=== PATIENT | female | born 1975 | race Caucasian/White ===

== ENCOUNTER → 2021-11-26 15:11 | Outpatient (CLI) | payer OTHER, SELFPAY | PROVIDERS: Visit Provider Nurse Practitioner Family | DX: U07.1 COVID-19 (principal) | CPT/HCPCS: C9803; U0003; U0005 ==

== ENCOUNTER → 2022-08-05 13:41 | Outpatient (CLI) | payer BC, SELFPAY ==
--- NOTE | 2022-08-05 14:01 | XR_ITS ---
FINAL REPORT CLINICAL HISTORY: . thoracic pain, acute midline low back pain with right sciatica , cervicalgia numbness of upper extremity FINDINGS: CERVICAL SPINE 5 views were obtained. There is no acute fracture. There is no malalignment. There are imel-[id number] degenerative changes with osteophytes. There is no significant neural foraminal narrowing. There are chronic calcifications posterior to C4 and C5. There is no soft tissue abnormality. IMPRESSION: Degenerative changes with no acute bony abnormality. THORACIC SPINE 2 views were obtained. There is no acute fracture. There is no malalignment. There are qdok-[id number] degenerative changes with osteophytes. There is no soft tissue abnormality. IMPRESSION: Degenerative change with no acute bony abnormality. LUMBAR SPINE 3 views were obtained. There is no acute fracture. There is no malalignment. There are mild degenerative changes with osteophytes. There is no soft tissue abnormality. IMPRESSION: Degenerative change with no acute bony abnormality. Reviewed, Interpreted and Dictated by Baron Odonnell III, MD Transcribed by Zuleyka Rosado Authenticated and . [facility]
[2022-08-05 15:55] LABS: Uric Acid 5.6 mg/dl (2.5-6.2)
[2022-08-05 16:00] LABS: C-Reactive Protein 18.8 mg/L (0-4)
[2022-08-05 16:20] LABS: Erythrocyte Sedimentation Rate 33 mm/hr (0-20)
[2022-08-07 10:12] LABS: RA Latex Turbid. <10.0 IU/mL (<14.0)
[2022-08-21 17:08] LABS: Antinuclear Antibodies (ANA) Negative
== END ==
PROVIDERS: PCP Nurse Practitioner Family; Visit Provider Nurse Practitioner Family
DX: M54.2 Cervicalgia (principal); R20.0 Anesthesia of skin; M54.6 Pain in thoracic spine; M54.41 Lumbago with sciatica, right side
CPT/HCPCS: 36415; 72084; 84550; 85651; 86038; 86140; 86431

== ENCOUNTER → 2023-03-09 12:58 | Outpatient (CLI) | payer BC, SELFPAY ==
--- NOTE | 2023-03-09 12:59 | MM_ITS ---
PROCEDURE INFORMATION: Exam: MG Bilateral Screening 3D Mammography Exam date and time: 03/09/2023 12:49 PM Age: 48 years old Clinical indication: Screening mammogram TECHNIQUE: Imaging protocol: Bilateral Screening tomosynthesis and 2D mammography including computer-aided detection (CAD) when performed. COMPARISON: No relevant prior studies available. FINDINGS: MAMMOGRAPHY: Breast composition: There are scattered areas of fibroglandular density. Mass: None. Architectural distortion: No new or suspicious architectural distortion. Calcifications: No new or suspicious calcifications are present Asymmetric density: No new or suspicious asymmetric density is present Skin thickening: None. Axillary adenopathy: None. IMPRESSION: No mammographic evidence of malignancy. Recommend annual screening mammography unless otherwise clinically indicated. ASSESSMENT: BI-RADS category 1: Negative
--- NOTE | 2023-03-09 12:59 | US_ITS ---
FINAL REPORT CLINICAL HISTORY: Heavy Bleeding FINDINGS: Transvaginal sonographic images of the pelvis were obtained. The uterus is enlarged measuring 10.3 x 6.2 x 5.5 cm. The endometrium is markedly thickened, measuring up to 2.4 cm. There are multiple uterine fibroids measuring up to 2.2 cm. The right ovary measures 2.6 cm in length and left ovary measures 4.6 cm in length. Normal blood flow seen to the ovaries. There is a 2.7 cm left ovarian cyst. There is a small amount of free fluid. IMPRESSION: Markedly thickened endometrium up to 2.4 cm. Enlarged uterus with multiple uterine fibroids up to 2.2 cm. 2.7 cm left ovarian cyst. Reviewed, Interpreted and Dictated by Baron Odonnell III, MD Transcribed by Lorri Lee Authenticated and [facility]
== END ==
PROVIDERS: PCP Nurse Practitioner Family; Visit Provider Obstetrics & Gynecology
DX: Z12.31 Encounter for screening mammogram for malignant neoplasm of breast (principal); N93.9 Abnormal uterine and vaginal bleeding, unspecified; Z98.890 Other specified postprocedural states
CPT/HCPCS: 76830; 77063; 77067

== ENCOUNTER → 2023-09-16 09:50 | Outpatient (CLI) | payer BC, SELFPAY ==
[2023-09-16 10:07] LABS: Basophils # 0.1 K/mm3 (0-0.2); Basophils % 0.5 % (0.1-2.0); Eosinophils # 0.2 K/mm3 (0.0-0.4); Eosinophils % 1.4 % (0.1-12.0); Hematocrit 41.1 % (37.0-47.0); Hemoglobin 13.6 g/dL (12.2-16.2); Lymphocytes # 3.2 K/mm3 (0.7-4.5); Lymphocytes % 30.1 % (10-50); Mean Corpuscular HGB Conc 33.1 g/dL (31.8-35.4); Mean Corpuscular Hemoglobin 30.2 pg (27.0-31.2); Mean Corpuscular Volume 91.2 fl (81-99); Mean Platelet Volume 7.7 fl (7.4-10.4); Monocytes # 0.4 K/mm3 (0.1-1.0); Monocytes % 4.1 % (1.7-9.3); Neutrophils # 6.8 K/mm3 (1.8-7.8); Platelet Count 420 K/mm3 (142-424); Red Cell Distribution Width 14.5 % (11.5-17.5); White Blood Count 10.6 K/mm3 (4.8-10.8)
[2023-09-16 11:42] LABS: Chloride 101 mmol/L (98-107); Potassium 4.2 mmoL/L (3.5-5.1); Sodium 142 mmol/L (136-145)
[2023-09-16 11:44] LABS: Blood Urea Nitrogen 9 mg/dl (7-17); Estimated Glomerular Filt Rate 90 ml/min (>60); GFR (African American) 109 ML/MIN (>60)
[2023-09-16 11:45] LABS: Alanine Aminotransferase 35 U/L (12-78); Albumin/Globulin Ratio 1.5 (1.1-1.8); Alkaline Phosphatase 57 U/L (38-126); Anion Gap 15.2 mEq/L (5-15); Aspartate Amino Transferase 34 U/L (14-36); Bilirubin,Total 0.4 mg/dl (0.2-1.3); Calcium 9.8 mg/dl (8.4-10.2); Carbon Dioxide 30 mmol/L (22.0-30.0); Globulin 3.4 g/dL (1.3-3.2); Glucose 95 mg/dl (74-100); Total Protein,Serum 8.4 g/dl (6.3-8.2)
[2023-09-16 12:04] LABS: HCG,Quantitative < 2 mIU/ml (0-5.42); Hemoglobin A1C 5.3 % (4.0-6.0)
== END ==
LOC: LAB 09:53
PROVIDERS: Visit Provider Obstetrics & Gynecology
DX: Z01.812 Encounter for preprocedural laboratory examination (principal); D25.9 Leiomyoma of uterus, unspecified; E11.9 Type 2 diabetes mellitus without complications; Z79.84 Long term (current) use of oral hypoglycemic drugs
CPT/HCPCS: 36415; 80053; 83036; 84702; 85025

== ENCOUNTER 2023-09-21 12:44 | Inpatient (IN) | payer BC, SELFPAY ==
[2023-09-19 13:10] VITALS: BMI 34.1
[2023-09-21] VITALS (19 sets, daily range): BP systolic 118–152; BP diastolic 61–83; PULSE 90–102; RESP 16–19; TEMP 36.3–37.4; O2SAT 94–99
[2023-09-21 06:57] LABS: POC Glucose,Bedside 87 (70-110)
--- NOTE | 2023-09-21 07:10 | P.HP_ITS ---
OB - H&P: HPI Antepartum History of Present Illness Chief complaint: Abnormal uterine bleeding, history of endometrial ablation History of present illness: Ms Vy Ortega is a 48 yo P2002 who presents for scheduled procedure. [facility] Disclaimer: The information contained in this section may have been updated after the patient was seen, as this information can be updated by other users. Medical History Abnormal uterine bleeding delivery delivered Diabetes High cholesterol Morbid obesity with BMI of 40.0-44.9, adult Uterine fibroid Surgical History H/O tubal ligation History of section x 2 History of endometrial ablation Family History Other Alcoholism Anemia Coronary artery disease Diabetes FHx: mental illness Hypertension Stroke Substance abuse Social History (Updated 09/21/23 @ 06:37 by Janet Glass RN) Smoking Status: Former smoker alcohol intake: current substance use type: denies use current occupational status: employed Travel in the last 8 weeks: None Meds Home Medications and Allergies Home Medications Medication Instructions Recorded Confirmed Type celecoxib 100 mg capsule 100 mg PO BID bones 01/31/23 09/21/23 History hydrocodone 5 mg-acetaminophen 325 1 tab PO DAILY 01/31/23 09/21/23 History mg tablet lidocaine 5 % topical patch 1 patch topical DAILY Back Pain 01/31/23 09/21/23 History multivitamin with iron (Daily 1 tab PO DAILY Supplement 01/31/23 09/21/23 History Multiple Vitamins with Iron tablet) atorvastatin 10 mg tablet (Lipitor) 10 mg PO DAILY Cholesterol 09/07/23 09/21/23 History bupropion HCl 150 mg 24 hr tablet, 150 mg PO DAILY Depression 09/07/23 09/21/23 History extended release metformin 500 mg tablet,extended 1,500 mg PO HS diabets 09/07/23 09/21/23 History release 24 hr tizanidine 4 mg tablet 4 mg PO HS PRN muscle spasms 09/07/23 09/21/23 History valsartan 160 1 tab PO DAILY 09/07/23 09/21/23 History mg-hydrochlorothiazide 25 mg tablet tirzepatide 7.5 mg/0.5 mL 7.5 mg SQ WEEKLY Diabetes 09/16/23 09/21/23 History subcutaneous pen injector (Molly) diphenhydramine HCl 25 mg capsule 25 mg PO DAILY PRN allergies 09/21/23 09/21/23 History (Benadryl) New Prescriptions to Start Prescriptions: Allergies Allergy/AdvReac Type Severity Reaction Status Date / Time No Known Allergies Allergy Verified 09/21/23 06:19 OB - H&P: Exam Physical Exam Vital signs: Temp Pulse Resp BP Pulse Ox O2 Del Method 97.4 F L 98 H 18 118/72 97 Room Air 09/21/23 06:25 09/21/23 06:25 09/21/23 06:25 09/21/23 06:25 09/21/23 06:25 09/21/23 06:25
--- NOTE | 2023-09-21 07:15 | EXP.HP ---
History of Present Illness *Admission Date: 09/21/23 *Reason for visit:: Abnormal uterine bleeding, history of endometrial ablation *History of present illness: Ms Vy Ortega is a 48 yo P2002 who presents for scheduled procedure. She complains of monthly periods with flow lasting 7-15 days. Sometimes she has two periods a month. She had an endometrial ablation in 2020 in [place]. She never stopped bleeding after ablation. History of x 2 and tubal ligation. She reports decreased libido secondary to bleeding. She admits it contributes to her depression. She would like to proceed with definitive surgical management with hysterectomy. Ultrasound demonstrated enlarged uterus measuring 10.3 x 6.2 x 5.5 cm. The endometrium is markedly thickened, measuring up to 2.4 cm. There are multiple uterine fibroids measuring up to 2.2 cm.? The right ovary measures 2.6 cm in length and left ovary measures 4.6 cm in length. Normal blood flow seen to the ovaries.? There is a 2.7 cm left ovarian cyst.? There is a small amount of free fluid. [facility] Disclaimer: The information contained in this section may have been updated after the patient was seen, as this information can be updated by other users. Medical History Abnormal uterine bleeding delivery delivered Diabetes High cholesterol Morbid obesity with BMI of 40.0-44.9, adult Uterine fibroid Surgical History H/O tubal ligation History of section History of endometrial ablation Family History Other Alcoholism Anemia Coronary artery disease Diabetes FHx: mental illness Hypertension Stroke Substance abuse Social History Smoking Status: Former smoker alcohol intake: current substance use type: denies use current occupational status: employed Travel in the last 8 weeks: None Review of Systems Review of Systems Review of systems:: pertinent systems reviewed and negative unless documented below *Genitourinary Genitourinary: Reports abnormal vaginal bleeding Psychiatric Psychiatric: Reports depression Endocrine Comments: Decreased libido Meds Home Medications and Allergies Home Medications Medication Instructions Recorded Confirmed Type celecoxib 100 mg capsule 100 mg PO BID bones 01/31/23 09/21/23 History hydrocodone 5 mg-acetaminophen 325 1 tab PO DAILY 01/31/23 09/21/23 History mg tablet lidocaine 5 % topical patch 1 patch topical DAILY Back Pain 01/31/23 09/21/23 History multivitamin with iron (Daily 1 tab PO DAILY Supplement 01/31/23 09/21/23 History Multiple Vitamins with Iron tablet) atorvastatin 10 mg tablet (Lipitor) 10 mg PO DAILY Cholesterol 09/07/23 09/21/23 History bupropion HCl 150 mg 24 hr tablet, 150 mg PO DAILY Depression 09/07/23 09/21/23 History extended release metformin 500 mg tablet,extended 1,500 mg PO HS diabets 09/07/23 09/21/23 History release 24 hr tizanidine 4 mg tablet 4 mg PO HS PRN muscle spasms 09/07/23 09/21/23 History valsartan 160 1 tab PO DAILY 09/07/23 09/21/23 History mg-hydrochlorothiazide 25 mg tablet tirzepatide 7.5 mg/0.5 mL 7.5 mg SQ WEEKLY Diabetes 09/16/23 09/21/23 History subcutaneous pen injector (Molly) diphenhydramine HCl 25 mg capsule 25 mg PO DAILY PRN allergies 09/21/23 09/21/23 History (Benadryl) New Prescriptions to Start Prescriptions: Allergies Allergy/AdvReac Type Severity Reaction Status Date / Time No Known Allergies Allergy Verified 09/21/23 06:19 Exam Data for Last 24 hours Vital signs and Labs for Last 24 Hours: Temp Pulse Resp BP Pulse Ox O2 Del Method 97.4 F L 98 H 18 118/72 97 Room Air 09/21/23 06:25 09/21/23 06:25 09/21/23 06:25 09/21/23 06:25 09/21/23 06:25 09/21/23 06:25 Laboratory Results -
--- NOTE | 2023-09-21 09:21 | P.PNANES_ITS ---
[facility] Disclaimer: The information contained in this section may have been updated after the patient was seen, as this information can be updated by other users. Medical History Abnormal uterine bleeding delivery delivered Diabetes High cholesterol Morbid obesity with BMI of 40.0-44.9, adult Uterine fibroid Surgical History H/O tubal ligation History of section History of endometrial ablation Family History Other Alcoholism Anemia Coronary artery disease Diabetes FHx: mental illness Hypertension Stroke Substance abuse Social History Smoking Status: Former smoker alcohol intake: current substance use type: denies use current occupational status: employed Travel in the last 8 weeks: None [facility] Anesthesia Checklist Patient Identification Patient Identification: Arm Band and Verbal (Name & ) Structural Data Admitted From: Home Planned Operative Procedure/s: [facility] Consent for Planned Operative Procedure(s) Verified: Yes Verified Documents: Surgical Consent NPO Status Verified Time NPO: 00:00 Chart Verification Results Verified: CBC, BMP and HCG Additional verifications Anesthesia Reactions: No Hx Blood Transfusions: No Blood Transfusion Reaction: No Airway Assessment Mallampati Score:: Class II C-Spine Mobility Assessed: Yes TMJ Mobility Assessed: Yes Dentition: Partials Neurological Assessment Level of Consciousness: Awake Hx Seizures: No Numbness or tingling in extremities: No Anesthesia Plan Anesthesia Risk discussed: Yes Anesthesia Plan: Verified ASA Class: II Anesthesia Type: General w/block
--- NOTE | 2023-09-21 11:49 | EXP.OP.NOTE ---
Date of procedure: 09/21/23 Pre-op Diagnosis:: 1. Abnormal uterined bleeding 2. History of endometrial ablation 3. Uterine fibroids 4. Obesity, BMI 34.4 5. Depression 6. DM type 2 7. Hypertension Post-op Diagnosis:: 1. Abnormal uterined bleeding 2. History of endometrial ablation 3. Uterine fibroids 4. Obesity, BMI 34.4 5. Depression 6. DM type 2 7. Hypertension Procedure performed:: Total Abdominal Hysterectomy, bilateral salpingectomy Surgeon:: Sonja Skelton DO Casting Agent(s):: Khadar Mack MD WOMEN NURSE:: Jose L Quijano Anesthesia: GETA Estimated blood loss (mL): 200 Clinical Note:: Ms Vy Ortega is a 48 yo P2002 who presented to [facility] for scheduled procedure. She complains of monthly periods with flow lasting 7-15 days. Sometimes she has two periods a month. She had an endometrial ablation in 2020 in [place]. She never stopped bleeding after ablation. History of x 2 and tubal ligation. She reports decreased libido secondary to bleeding. She admits it contributes to her depression. She would like to proceed with definitive surgical management with hysterectomy. Ultrasound demonstrated enlarged uterus measuring 10.3 x 6.2 x 5.5 cm. The endometrium is markedly thickened, measuring up to 2.4 cm. There are multiple uterine fibroids measuring up to 2.2 cm.? The right ovary measures 2.6 cm in length and left ovary measures 4.6 cm in length. Normal blood flow seen to the ovaries.? There is a 2.7 cm left ovarian cyst.? There is a small amount of free fluid. Operative findings:: 1. Grossly normal appearing bowel and omentum. Uterus and bilateral fallopian tubes grossly normal with several small cysts along the anterior surface of the uterus and fallopian tubes. Two Filshie clips noted on each fallopian tube. Grossly normal appearing bilateral ovaries. Operative note:: Discussed risks, benefits, alternatives, expectations and possible complications of surgery. All questions addressed and answered. Patient wished to proceed with surgery. Patient was wheeled back to the operating room and placed under general anesthesia without difficulty. The patient received 2 grams of Ancef preoperatively. SCDs in place. Vagina was prepped with Betadine swabs x 3. Willingham catheter was inserted and draining clear urine prior to the start of the procedure. She was placed in the supine position. She was prepped and draped in normal sterile fashion. Attention was then turned to the abdomen. A Pfannenstiel skin incision was made 2 cm above pubic symphysis. This was carried through to underlying layer of fascia. Fascia was incised in midline, extended laterally with Berumen scissors. Superior aspect of fascial incision was grasped with two Julianne clamps, elevated up, and rectus muscle dissected off bluntly and sharply with Berumen scissors. The retcus muscle was then in the midline and the peritoneum was entered bluntly with a digit. Peritoneal incision was then extended superiorly and inferiorly with good visualization of the bladder. O'Ziyad O'deluca retractor was placed in the abdominal incision. Bowel was packed cephalad with warm moist laparotomy sponges. Uterus was deviated to the right, right round ligament placed on stretch and incised between two clamps. The distal stump of the round ligament was suture ligated with 0 Vicryl suture. The proximal stump was held with a Julianne clamp. The leaves of the broad ligament were opened both anteriorly and posteriorly. The uterus was retracted cephalad. The anterior leaf of the broad ligament was opened down to the vesicouterine fold. Same procedure was carried out on the contralateral side. The vesicouterine peritoneal fold was elevated, and the bladder was dissected off of the lower uterine segment with sharp and blunt dissection. The uterus was retracted toward the pubic symphysis and deviated to right side. A finger was inserted through the peritoneum of the posterior leaf of the broad ligament under the suspensory l
--- NOTE | 2023-09-21 11:52 | EXP.ANES.I ---
[facility] Anesthesia Record Part I Anesthesia Record I Intake, IV Amount: 1,100 Hydration: Adequate Estimated blood loss (mL): 200 Urine output (mL): 300 Blood Products used (#): none Blood Pressure: 134/80 SaO2: 97 Pulse Rate: 90 Airway Patency: Patent Respiratory Rate: 16 Temperature: 99.3 F Patient is:: Drowsy and Stable Stable to PACU at:: 11:45
--- NOTE | 2023-09-21 13:07 | HMH.PHAINT1 ---
Pharmacy Intervention Comments: HOME MEDICATION LIST VERIFIED USING LIST FROM OUTPATIENT PHARMACY
[2023-09-21 13:33] LABS: Microscopic,Cath URINE MICROSCOPIC (MICROSCOPIC)
[2023-09-21 13:48] LABS: Appearance,Urine/Cath CLEAR (Clear); Bilirubin,Cath Negative (Negative); Blood, Urine/Cath Negative (Negative); Color,Urine/Cath YELLOW (Yellow); Glucose,Urine/Cath (UA) Negative (Negative); Ketones,Urine/Cath 1+ (Negative); Leukocyte Esterase,Cath Negative (Negative); Nitrate,Cath Negative (Negative); PH,Urine/Cath 6.5 (5.0-8.5); Protein,Urine/Cath Negative (Negative); Specific Gravity, Urine/Cath 1.025 (1.005-1.030)
[2023-09-21 14:16] LABS: Bacteria,Urine/Cath TRACE /lpf; Squamous Epithelial Ur./Cath Occasional #/hpf (0-5); WBC,Urine/Cath Occasional #/hpf (0-3)
--- NOTE | 2023-09-21 19:34 | PC.NURSE ---
LATE ENTRY 1630: PT HAS RESTED WELL WITH ORDERED PRN PAIN MEDICATION THIS SHIFT. LTV DRESSING INTACT WITH SEROSANGINOUS DRAINAGE (UNCHANGED FROM INITIAL ASSESSMENT). VS REMAIN STABLE. FAMILY REMAINS AT BEDSIDE.
[2023-09-22] VITALS (7 sets, daily range): BP systolic 101–144; BP diastolic 53–83; PULSE 70–91; RESP 16–18; TEMP 36.4–37.1; O2SAT 96–100
[2023-09-22 06:28] LABS: Basophils % 0.2 % (0.1-2.0); Eosinophils # 0.1 K/mm3 (0.0-0.4); Eosinophils % 0.5 % (0.1-12.0); Hemoglobin 10.5 g/dL (12.2-16.2); Lymphocytes # 2.5 K/mm3 (0.7-4.5); Lymphocytes % 25.7 % (10-50); Mean Corpuscular Hemoglobin 30.5 pg (27.0-31.2); Mean Corpuscular Volume 89.7 fl (81-99); Mean Platelet Volume 7.8 fl (7.4-10.4); Monocytes # 0.6 K/mm3 (0.1-1.0); Monocytes % 6.7 % (1.7-9.3); Neutrophils # 6.4 K/mm3 (1.8-7.8); Neutrophils % 66.9 % (37.0-80.0); Platelet Count 314 K/mm3 (142-424); Red Blood Count 3.45 M/mm3 (4.20-5.40); Red Cell Distribution Width 14.6 % (11.5-17.5); White Blood Count 9.6 K/mm3 (4.8-10.8)
[2023-09-22 06:38] LABS: Alanine Aminotransferase 19 U/L (12-78); Albumin Level 3.5 g/dl (3.5-5.0); Albumin/Globulin Ratio 1.3 (1.1-1.8); Alkaline Phosphatase 49 U/L (38-126); Anion Gap 10.3 mEq/L (5-15); Aspartate Amino Transferase 23 U/L (14-36); Bilirubin,Total 0.1 mg/dl (0.2-1.3); Blood Urea Nitrogen 7 mg/dl (7-17); Carbon Dioxide 28 mmol/L (22.0-30.0); Chloride 103 mmol/L (98-107); Creatinine Clearance Estimated 181 mL/min (50-200); Estimated Glomerular Filt Rate 107 ml/min (>60); GFR (African American) 130 ML/MIN (>60); Globulin 2.7 g/dL (1.3-3.2); Glucose 96 mg/dl (74-100); Potassium 3.3 mmoL/L (3.5-5.1); Sodium 138 mmol/L (136-145); Total Protein,Serum 6.2 g/dl (6.3-8.2)
--- NOTE | 2023-09-22 11:32 | P.PNANES_ITS ---
[facility] Anesthesia Record Part II Anesthesia Record Part II Discharge Time: 12:15 Destination: Obstetric PACU nurse assessment reviewed?: Yes Patient Condition:: Good Anesthesia Complications:: None Swallowing reflex intact?: Yes Airway Patency: Patent Cyanosis?: No Blood Pressure: 140/83 SaO2: 99 Respiratory Rate: 18 Pulse Rate: 91 Temperature: 97.8 F Mental Status: Alert & Oriented Pain level:: 1 Nausea and/or vomitting:: None Intake, IV Amount: 0 Hydration: Adequate
--- NOTE | 2023-09-22 12:43 | EXP.ACUTE.PN ---
Subjective *Date: 09/22/23 *Time: 12:43 Interval history: POD # 1 s/p PENELOPE, BS Vy is resting comfortably in bed this morning. Pain controlled. Willingham catheter in place draining clear urine. Denies flatus. Tolerating light diet. Denies fever/chills, chest pain and shortness of breath. No nausea or vomiting. She has not been up ambulating yet. Medical Exam Vital signs and Labs for Last 24 Hours: Vital Signs Temp Pulse Pulse Resp BP BP Pulse Ox 09/22/23 10:00 09/22/23 09:10 09/22/23 07:45 09/22/23 08:50 09/22/23 08:50 98.2 F 89 18 126/60 99 09/22/23 06:12 09/22/23 04:00 97.9 F 70 18 101/64 L 96 09/22/23 05:00 09/22/23 03:00 09/22/23 00:48 09/22/23 00:00 97.6 F 72 18 106/64 L 97 09/21/23 23:00 09/21/23 20:27 09/21/23 20:00 97.8 F 100 H 18 128/64 97 09/21/23 18:35 98.3 F 92 H 18 131/62 99 09/21/23 17:35 98.1 F 98 H 18 125/65 99 09/21/23 16:35 98.0 F 102 H 18 122/67 98 09/21/23 15:35 98.1 F 94 H 18 125/70 98 09/21/23 15:05 98.2 F 95 H 18 137/73 98 09/21/23 14:35 98.3 F 96 H 18 143/77 H 98 09/21/23 18:30 09/21/23 17:30 09/21/23 15:30 09/21/23 14:30 09/21/23 14:05 98.8 F 95 H 18 152/82 H 96 09/21/23 13:35 97.6 F 97 H 19 143/77 H 96 09/21/23 13:20 97.7 F 96 H 18 148/80 H 96 09/21/23 13:05 97.6 F 93 H 19 142/75 H 95 09/21/23 12:50 97.7 F 92 H 18 150/74 H 99 09/22/23 11:33 18 O2 Del Method 09/22/23 10:00 Room Air 09/22/23 09:10 Room Air 09/22/23 07:45 Room Air 09/22/23 08:50 Room Air 09/22/23 08:50 Room Air 09/22/23 06:12 Room Air 09/22/23 04:00 Room Air 09/22/23 05:00 Room Air 09/22/23 03:00 Room Air 09/22/23 00:48 Room Air 09/22/23 00:00 Room Air 09/21/23 23:00 Room Air 09/21/23 20:27 Room Air 09/21/23 20:00 Room Air 09/21/23 18:35 Room Air 09/21/23 17:35 Room Air 09/21/23 16:35 Room Air 09/21/23 15:35 Room Air 09/21/23 15:05 Room Air 09/21/23 14:35 Room Air 09/21/23 18:30 Room Air 09/21/23 17:30 Room Air 09/21/23 15:30 Room Air 09/21/23 14:30 Room Air 09/21/23 14:05 Room Air 09/21/23 13:35 Room Air 09/21/23 13:20 Room Air 09/21/23 13:05 Room Air 09/21/23 12:50 Room Air 09/22/23 11:33 Intake and Output 09/21/23 09/22/23 09/22/23 23:59 07:59 15:59 Intake Total 1840 / 1840 0 / 1840 Output Total 350 / 350 750 / 1150 400 / 1150 Balance -350 / 750 1090 / 690 -400 / 690 Intake: Intake, Oral Amount 240 / 240 Intake, Total IV Amount 1600 / 1600 0 / 1600 Cefazolin Sodium 2 gm In 0.9 % 100 / 100 Sodium Chloride 100 ml @ 200 mls/hr IV Q8H RADHA Rx#:[id number] Lactated Ringers 1000ML 1,000 1500 / 1500 ml @ 125 mls/hr IV .Q8H RADHA Rx# :[id number] Output: Output, Urine Amount 350 / 350 750 / 1150 400 / 1150 Other: Number of Voids 1 Number of Unmeasured Voids 0 0 Laboratory Results - last 24 hr 09/21/23 09:33: Urine Color Yellow, Urine Appearance Clear, Urine pH 6.5, Ur Specific [place] 1.025, Urine Protein Negative, Urine Glucose (UA) Negative, Urine Ketones 1+, Urine Blood Negative, Urine Nitrate Negative, Urine Bilirubin Negative, Urine Urobilinogen 1.0, Ur Leukocyte Esterase Negative, Urine RBC None, Urine WBC Occasional, Ur Squamous Epith Cells Occasional, Urine Bacteria Trace 09/22/23 05:50: WBC 9.6, RBC 3.45 L, Hgb 10.5 L, Hct 31.0 L, MCV 89.7, MCH 30.5, MCHC 34.0, RDW 14.6, Plt Count 314, MPV 7.8, Neut % (Auto) 66.9, Lymph % (Auto) 25.7, [place] % (Auto) 6.7, Eos % (Auto) 0.5, Baso % (Auto) 0.2, Neut # (Auto) 6.4, Lymph # (Auto) 2.5, [place] # (Auto) 0.6, Eos # (Auto) 0.1, Baso # (Auto) 0.0, Sodium 138, Potassium 3.3 L, Chloride 103, Carbon Dioxide 28, Anion Gap 10.3, BUN 7, Creatinine 0.60, Estimated Creat Clear 181, Estimated GFR 107, Est GFR ( Amer) 130, Glucose 96, Calcium 8.0 L, Total B
--- NOTE | 2023-09-22 16:04 | PC.NURSE ---
1530 RN reassessment completed. Pt lying in bed, talking with her visitor. She has ambulated in the henriquez and in her room this shift and also sit up in the chair for an extended amount of time without any complaints. Pt reports that abdominal pain improves with PRN oxy but she continues to have gas pain. Pt has been chewing gum per MD order, has received simethicone 160 mg PO and has also been ambulating. Pt reports belching several times but no flatus. Abd soft and mildly tender with BS active in all quads. 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 Wound care education provided to pt as well as surgical site infection education. Pt has been up to void x2 this shift since removal of F/C, denies any issues with voiding. She is tolerating a regular diet well and denies any N/V. Bed locked and in lowest position, side rails up x2, call light within reach. IV S/L at this time per MD order.
--- NOTE | 2023-09-22 17:30 | PC.NURSE ---
report received from Alecia Dockery RN. pt alert and oriented, sitting up in bed with daughter at bedside. lung sounds cta. abdomen soft, mild tenderness t/o. bowel sounds active. pt denies passing flatus but states she is able to belch. pt has transverse incision to lower abdomen with agustín in place, no drainage noted. scuds in place. call light w/i reach.
--- NOTE | 2023-09-22 21:34 | PC.NURSE ---
pt reports passing gas around 2100
[2023-09-23] VITALS: BP 116/67; PULSE 90; RESP 18; TEMP 36.7; O2SAT 95
[2023-09-23 03:40] VITALS: BP 108/35; PULSE 92; RESP 17; TEMP 36.7; O2SAT 96
[2023-09-23 03:45] VITALS: O2SAT 96
[2023-09-23 08:00] VITALS: BP 131/78; PULSE 88; RESP 18; O2SAT 94
--- NOTE | 2023-09-23 08:15 | EXP.DC.SUM ---
General Admission date:: 09/21/23 Discharge date: 09/23/23 HPI HPI HPI: POD # 2 s/p PENELOPE, BS Resting comfortably this morning. Pain controlled. Denies vaginal bleeding. Voiding without difficulty and passing flatus. Tolerating regular diet. Denies fever/chills, chest pain and shortness of breath. No nausea or vomiting. Denies dizziness and lightheadedness. Ambulating well ad luz. Hospital Course Hospital Course Hospital Course: Ms Vy Ortega is a 48 yo P2002 who presented to [facility] for scheduled procedure. She complains of monthly periods with flow lasting 7-15 days. Sometimes she has two periods a month. She had an endometrial ablation in 2020 in [place]. She never stopped bleeding after ablation. History of x 2 and tubal ligation. She reports decreased libido secondary to bleeding. She admits it contributes to her depression. She would like to proceed with definitive surgical management with hysterectomy. Ultrasound demonstrated enlarged uterus measuring 10.3 x 6.2 x 5.5 cm. The endometrium is markedly thickened, measuring up to 2.4 cm. There are multiple uterine fibroids measuring up to 2.2 cm.? The right ovary measures 2.6 cm in length and left ovary measures 4.6 cm in length. Normal blood flow seen to the ovaries.? There is a 2.7 cm left ovarian cyst.? There is a small amount of free fluid. She underwent total abdominal hysterectomy with bilateral salpingectomy on 09/21/23. She did well postoperatively. Pain controlled. No vaginal bleeding. Voiding without difficulty and passing flatus. Tolerating regular diet. Denies fever/chills, chest pain and shortness of breath. No nausea or vomiting. Denies dizziness and lightheadedness. Ambulating well ad luz. Vital signs stable, afebrile. Heart regular rate and rhythm. Lungs clear to auscultation. Abdomen soft, appropriate mild tenderness to palpation. Normal hospital course. She was discharged to home on POD #2 with instructions to follow up in the office in 6 days for staple removal and incision check. Exam Data for Last 24 hours Vital signs and Labs for Last 24 Hours: Temp Pulse Resp BP Pulse Ox O2 Del Method 98.1 F 92 H 17 108/35 L 96 Room Air 09/23/23 03:40 09/23/23 03:40 09/23/23 03:40 09/23/23 03:40 09/23/23 03:45 09/23/23 06:00 I & O for Last 24 hours: Intake & Output 09/20/23 09/21/23 09/22/23 09/23/23 23:59 23:59 23:59 23:59 Intake Total 1100 / 1100 1840 / 1840 Output Total 350 / 350 1550 / 2150 600 / 600 Balance 750 / 750 290 / -310 -600 / -600 Constitutional Constitutional: no acute distress and cooperative *Routine HEENT Exam Head: Present normocephalic and atraumatic Eye: Absent conjunctivae pink ENT: Present mucous membranes moist *Routine Neck Exam Neck: Present full ROM *Routine Respiratory Exam Respiratory: Present CTA bilaterally and normal respiratory effort *Routine Cardiovascular Exam Cardiovascular: Present RRR *Routine Abdominal Exam Abdominal: Present soft and normoactive bowel sounds; Absent tenderness or distended Comments: Pfannenstiel incision clean/dry/intact with metal agustín in place *Routine Rectal Exam Patient deferred: visual exam *Routine Exam Patient deferred: external exam *Routine Extremities Exam Extremities: Present full ROM; Absent edema or calf tenderness *Routine Neurological Exam Neurological: Present alert, oriented X3 and moving all extremities Routine Psychiatric Exam Psychiatric: Present normal affect and cooperative DS: Diagnosis Discharge Diagnosis (1) S/P PENELOPE (total abdominal hysterectomy): Status: Acute Code(s): Z90.710 - Acquired absence of both cervix and uterus Problem details: PENELOPE, GUERDA on 09/21/23 (2) Abnormal uterine bleeding: Status: Acute Code(s): N93.9 - Abnormal uterine and vaginal bleeding, unspecified (3) History of endometrial ablation: Status: Acute Code(s): Z98.890 - Other specified postprocedural states (4) History of
== END 2023-09-23 10:10 | disposition home or self-care (01) | DRG 743 ==
LOC: OB 12:45
PROVIDERS: Admitting Provider Obstetrics & Gynecology; Visit Provider Obstetrics & Gynecology
PROC: 0UT90ZZ Resection of Uterus, Open Approach (ICD-10-PCS; CPT 58150; principal; 2023-09-21 07:30)
DX: N93.8 Other specified abnormal uterine and vaginal bleeding (principal); E66.01 Morbid (severe) obesity due to excess calories; E78.00 Pure hypercholesterolemia, unspecified; Z68.34 Body mass index [BMI] 34.0-34.9, adult; Z87.891 Personal history of nicotine dependence; D25.9 Leiomyoma of uterus, unspecified; F32.A Depression, unspecified; E11.9 Type 2 diabetes mellitus without complications
CPT/HCPCS: 58150; 36415; 80053; 81001; 82962; 85025; 96374; C9290; J2405

== ENCOUNTER 2023-12-17 09:56 | Outpatient (CLI) | payer BC, SELFPAY ==
--- NOTE | 2023-12-17 10:04 | XR_ITS ---
PROCEDURE INFORMATION: Exam: XR Left Shoulder Exam date and time: 12/17/2023 10:05 AM Age: 49 years old Clinical indication: Pain; Weakness; Shoulder; Left; Additional info: Pain. Limited R. O. M. Radiates down arm. TECHNIQUE: Imaging protocol: Radiologic exam of the left shoulder. Views: 2 or more views. COMPARISON: CR XR MULTIPLE SPINE 6+V 08/05/2022 2:08 PM FINDINGS: Bones/joints: Normal. Soft tissues: Normal. IMPRESSION: No acute findings.
== END 2023-12-17 23:59 ==
LOC: RAD 09:58
PROVIDERS: Visit Provider Pain Medicine Interventional Pain Medicine
DX: M25.512 Pain in left shoulder (principal)
CPT/HCPCS: 73030

== ENCOUNTER 2024-03-05 17:01 | Outpatient (CLI) | payer BC, SELFPAY ==
--- NOTE | 2024-03-05 17:04 | MR_ITS ---
FINAL REPORT CLINICAL HISTORY: PAIN IN LEFT SHOULDER. LIMITED ROM. WEAKNESS IN ARM FINDINGS: Multi planar MR imaging of the left shoulder was performed. There is heterogeneous abnormal signal in the distal supraspinatus tendon. Small amount of fluid is seen in the subacromial/subdeltoid bursa. Findings are consistent with a partial full-thickness tear of the distal supraspinatus tendon anteriorly. The anterior and posterior glenoid matthew appear intact. The biceps tendon appears intact. The acromioclavicular joint appears intact. IMPRESSION: Full-thickness tear of the supraspinatus tendon. Reviewed, Interpreted and Dictated by Diogo Victoria MD Transcribed by Lilo Lucio Authenticated and [facility]
== END 2024-03-05 23:59 | disposition home or self-care (01) ==
LOC: RAD 17:02
PROVIDERS: Visit Provider Pain Medicine Interventional Pain Medicine
DX: M79.622 Pain in left upper arm (principal); M25.512 Pain in left shoulder
CPT/HCPCS: 73221

== ENCOUNTER 2024-06-07 09:40 | Outpatient (CLI) | payer BC, SELFPAY ==
--- NOTE | 2024-06-07 09:43 | XR_ITS ---
FINAL REPORT CLINICAL HISTORY: lt shoulder pain limited rom FINDINGS: 2 views of the left shoulder were obtained. There is no prior exam for comparison. There is no fracture or dislocation. There is mild degenerative joint disease. Soft tissues are normal. IMPRESSION: No acute osseous abnormality of the left shoulder. Reviewed, Interpreted and Dictated by Belle Randall MD Transcribed by Irina Myles Authenticated and [facility]
== END 2024-06-07 23:59 | disposition home or self-care (01) ==
LOC: RAD 09:41
PROVIDERS: PCP Family Medicine; Visit Provider Physician Assistant Surgical
DX: M25.512 Pain in left shoulder (principal); G89.29 Other chronic pain
CPT/HCPCS: 73030

== ENCOUNTER 2024-09-06 12:49 | Outpatient (CLI) | payer OTHER, SELFPAY ==
--- NOTE | 2024-09-06 13:39 | XR_ITS ---
FINAL REPORT CLINICAL HISTORY: hip pain FINDINGS: LEFT HIP 3 views of the left hip are obtained. There is no acute fracture or dislocation. There are minimal hypertrophic changes of the acetabular margins. Visualized joint spaces are normally aligned. There is no acute soft tissue abnormality. Bilateral tubal ligation clips are noted. IMPRESSION: No acute bony abnormality. Reviewed, Interpreted and Dictated by Diogo Victoria MD Transcribed by Irina Myles Authenticated and [facility]
== END 2024-09-06 23:59 | disposition home or self-care (01) ==
LOC: RAD 12:55
PROVIDERS: Visit Provider Physician Assistant Surgical
DX: M25.552 Pain in left hip (principal)
CPT/HCPCS: 73502

== ENCOUNTER 2024-10-01 09:00 | Outpatient (RCR) | payer OTHER, SELFPAY ==
--- NOTE | 2024-09-12 09:41 | HMH.PTOPEV ---
PT Outpatient Evaluation Rehab PT Outpatient Evaluation Start: 09/12/24 08:01 Freq: Status: Active Protocol: Document 09/12/24 08:01 ANKUR (Rec: 09/12/24 09:33 ANKUR [id number]) E-signed By Emma Dickerson, PT Outpatient Therapy Subjective History Subjective History This is an initial PT evaluation for 49 y/o female, Vy Tan, who presents with referral for hip pain from a hematoma. Referral specifies ultrasound, massage, modalities for hematoma . Pt obtained this injury to her L hip in a fall at work on . Pt went to see her PCP and was referred for an X-ray which came back negative for acute bony abnormalities. Denies having further imaging. Since the injury, pt has been using OTC pain meds, ice, rest, mm relaxers, and heat and reports good relief and improved swelling (swelling used to extend to knee and is now located at lateral hip). Pt does report intermittent numbness and tingling in LLE on lateral thigh down to big toes since fall. Pt still presents with large hematoma on L hip that measures 9x9 cm in a circular pattern. CHIEF COMPLAINT: L hip pain with bruising. 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 PMH: Tear of supraspinatus tendon, Chronic left shoulder pain, MDD (major depressive disorder), Chronic post- traumatic stress disorder ( PTSD), Anxiety, Acute blood loss anemia, High cholesterol, Diabetes. New diagnosis of cancer in past 12 No months? Chief Complaint Pain,Swelling Symptoms Relieved By OTC Meds Prior Functional Limitations None Current Functional Limitations Lifting,Dressing,Desk Work/ Reading,Driving,Standing, Sitting,Squatting,Recreation Activity,Stairs,Bending/ Stooping Symptom Description Constant but Variable,Activity Dependent Level of pain today (0-10) 6 Pain scale - at its best (0-10) 4 Pain scale - at its worst (0-10) 9 Hip/Knee Eval Gait Observation General Gait Pattern Observation No Deviations/Normal Assistive Device Assistive Devices None / NA Palpation Tenderness left Knee Palpation Finding None/Normal Knee Palpation Overall Comment Hip 3/4 TTP at site of bruise. Hip Palpation Findings Tenderness MMT Hip Flexion Strength Grade 4 Good Hip Abduction Strength Grade 4 Good Hip Adduction Strength Grade 4 Good Hip Extension Strength Grade 4 Good Knee Strength Reason Not Measured Pain Knee Extension Strength Grade 5 Normal Knee Flexion Strength Grade 5 Normal ROM Hip Flexion w/Knee Flexed Active Range 110, pain end range of Motion (degrees) Hip Abduction Active Range of Motion ( WNL but pain at ER degrees) Lower Extremity Functional Index Activities Today, do you or would you have any difficulty at all with: a.Any of your usual work, housework or Moderate difficulty school activities b. Your usual hobbies, recreational or Extreme difficulty or unable sporting activities to perform activity c. Getting into or out of the bath Moderate difficulty d. Walking between rooms Extreme difficulty or unable to perform activity e. Putting on your shoes or socks Extreme difficulty or unable to perform activity f. Squatting Moderate difficulty g. Lifting an object, like a bag of A little bit of difficulty groceries from the floor h. Performing light activities around Quite a bit of difficulty your home i. Performing heavy activities around Quite a bit of difficulty your home j. Getting into or out of a car Quite a bit of difficulty k. Walking 2 blocks Quite a bit of difficulty l. Walking a mile Quite a bit of difficulty m. Going up or down 10 stairs (about 1 Quite a bit of difficulty flight of stairs) n. Standing for 1 hour Extreme difficulty or unable to perform activity o. Sitting for 1 hour Quite a bit of difficulty p. Running on even ground Quite a bit of difficulty q. Running on uneven ground Quite a bit of difficulty r. Making sharp turns while running fast Quite a bit of difficulty s. Hopping Quite a bit of difficulty t. Rolling over in bed Extreme difficulty or unable to perform activity LEFI Score Lower Extremity Functional Index Score 20 Miscellaneous Dx PT Eval Objective Objective L hip log roll: Negative L hip scour: Negative L YANE: Negative L FADIR: Negative Gait: Minimal- no antalgic gait. Outpatient Therapy Assessment Impairments Problems/Impairmments Palpation Tenderness,Impaired Range of Motion,Impaired Strength,Impaired Gait Pattern ,Impaired Driving,Impaired Lifting,Impaired Stair Climbing,Impaired Incline Stepping,Impaired Squatting, Impaired Bending,Impaired Recreational Activities, Impaired Running,Impaired Jumping,Impaired Work Activities,Subjective C/O Pain Prognosis Rehab Potential Good Comment Pt presents with objective findings and subjective complaints consistent with her imaging and diagnosis of L hip pain with hematoma. Pt with impaired strength, some impaired ROM, and hematoma present on L hip. Pt would benefit from skilled OP PT to address pain, promote healing, and return to PLOF. Clinical Impression Consistent with Diagnosis No Short Term Goals Number of Weeks 4 Decreased Palpation Tenderness Yes: Decrease TTP to 2/4 at lateral hip. Increase Strength Yes: Improve LLE strength to at least 4+/5 globally. Improve LEFI Score Yes: Improve by 8 points to improve LE functioning. Decrease Subjective C/O Pain Yes: 48 hour pain average of 5 /10 to decrease pain severity. 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 Decrease Edema Yes: No palpable or visible swelling present in lateral hip to return to PLOF. Decrease Subjective C/O Pain Yes: 48 hour pain average of 2 /10 to decrease severity. Patient to be Ind w/ Advanced HEP Yes Outpatient Therapy Plan of Care Treatment Plan May Include Therapeutic Exercise Including Home Yes Exercise Program Manual Therapy Techniques Yes Neuromuscular Re-education Yes Therapeutic Activities to Return to Yes Previous Functional/Work Level Gait Training Yes ADL/Self Care Education Yes Thermal Modalities Yes Electrical Stimulation Yes Ultrasound/Phonophoresis Yes Iontophoresis Yes Orthotics/Bracing/Splinting Yes Vasopneumatic Compression Pump Yes Massage Yes Eval/Re-Eval Yes Frequency Times per week 2x weekly Duration Number of Weeks 6-8 weeks Addendums This patient is a candidate for social No or vocational rehab? Patient/Guardian verbally acknowledges Yes understanding of treatment program and consents to further treatment? Patient/Guardian verbally acknowledges Yes understanding of diagnosis, prognosis and goals for treatment? Eval Complexity PT Charges 98623 - Moderate Complexity Shoulder/Elbow Eval Shoulder Objective Measurements Elbow Objective Measurements PHYSICIAN CERTIFICATION: I certify the specified therapy services for Vy Tan are required, authorized, and reviewed every 30 days.
== END 2024-10-01 23:59 | disposition home or self-care (01) ==
LOC: PT 09:00
PROVIDERS: Visit Provider Physician Assistant Surgical
DX: M25.552 Pain in left hip (principal); S70.02XA Contusion of left hip, initial encounter
CPT/HCPCS: 97110; 97163; 97530

== ENCOUNTER 2025-01-29 16:41 | Outpatient (CLI) | payer OTHER, SELFPAY ==
--- NOTE | 2025-01-29 16:43 | MR_ITS ---
PROCEDURE INFORMATION: Exam: MR Lumbar Spine Without Contrast Exam date and time: 01/29/2025 4:43 PM Age: 50 years old Clinical indication: Low back pain; Additional info: Lumbar pain down to toes. Fall at work on 08/21/2024 TECHNIQUE: Imaging protocol: Magnetic resonance imaging of the lumbar spine without contrast. COMPARISON: CR XR MULTIPLE SPINE 6+V 08/05/2022 2:08 PM FINDINGS: Bones/joints: Vertebral body heights, alignment and marrow signal are within normal limits. Lumbar spondylosis is noted with disc bulging and central protrusion mainly at L4-L5. Spinal cord: Visualized cord, conus medullaris and cauda equina are unremarkable without compression. L1-L2: No significant disc bulge or herniation. No severe spinal canal stenosis. No significant neural foraminal narrowing. L2-L3: At L2-L3 there is facet arthropathy causing mild canal narrowing. There is no significant neural foraminal stenosis. L3-L4: At L3-L4 there is disc bulging with facet arthropathy. There is mild canal narrowing and neural foraminal stenosis. L4-L5: At L4-L5 there is a broad-based disc bulge and superimposed central protrusion with annular high signal intensity zone associated as well as ligamentous thickening and facet arthropathy causing moderate to severe canal narrowing with crowding of nerve roots. There is moderate neural foraminal narrowing. L5-S1: At L5-S1 there is disc bulging and central annular high signal intensity zone with facet arthropathy causing mild canal narrowing and neural foraminal stenosis. Soft tissues: Unremarkable. IMPRESSION: Lumbar spondylosis as described, worst at L4-L5.
== END 2025-01-29 23:59 | disposition home or self-care (01) ==
LOC: RAD 16:43
PROVIDERS: PCP Internal Medicine Adolescent Medicine; Visit Provider Physician Assistant Surgical
DX: M54.16 Radiculopathy, lumbar region (principal)
CPT/HCPCS: 72148

== ENCOUNTER 2025-04-04 07:59 | Outpatient (CLI) | payer OTHER, SELFPAY ==
--- NOTE | 2025-04-04 08:04 | MR_ITS ---
FINAL REPORT CLINICAL HISTORY: PAIN IN LFT SHOULDER. LIMITED ROM. FELL AT WORK 7 MONTHS AGO. WEAKNESS IN ARM. COMPARISON: 03/05/2024 FINDINGS: Multi planar MR imaging of the left shoulder was performed. There is thinning of the distal supraspinatus tendon, with a partial full-thickness tear noted anteriorly, and a 1 cm defect present seen on images #10 through 12 of series 7. There is trace fluid present in the subacromial subdeltoid bursa. The anterior labrum is intact. There is irregularity of the posterior labrum, that may represent a partial tear, likely degenerative. There is a probable split tear of the proximal biceps tendon, new since the prior exam, best seen on images #15 through 17 of series 3. The acromioclavicular joint appears intact. IMPRESSION: Partial full-thickness tear of the anterior distal supraspinatus tendon, seen on the prior exam. Irregularity of the posterior labrum, which may represent a partial tear, likely degenerative. Probable split tear of the proximal biceps tendon, new since prior exam. Reviewed, Interpreted and Dictated by Diogo Victoria MD Transcribed by Thalia Solorio Authenticated and [facility]
== END 2025-04-04 23:59 | disposition home or self-care (01) ==
LOC: RAD 08:01
PROVIDERS: PCP Internal Medicine Adolescent Medicine; Visit Provider Nurse Practitioner Family
DX: S46.012A Strain of muscle(s) and tendon(s) of the rotator cuff of left shoulder, initial encounter (principal)
CPT/HCPCS: 73221

== ENCOUNTER 2025-05-08 08:01 | Outpatient (RCR) | payer OTHER, SELFPAY | END 2025-05-08 23:59 | disposition home or self-care (01) | LOC: PT 08:01 | PROVIDERS: Visit Provider Nurse Practitioner Family | DX: M54.16 Radiculopathy, lumbar region (principal) | CPT/HCPCS: 97161 ==

== ENCOUNTER 2025-10-09 13:01 | Outpatient (RCR) | payer OTHER, SELFPAY | END 2025-10-09 23:59 | disposition home or self-care (01) | LOC: PT 13:01 | PROVIDERS: Visit Provider Nurse Practitioner Family | DX: M54.16 Radiculopathy, lumbar region (principal); R32 Unspecified urinary incontinence | CPT/HCPCS: 97162 ==